=== PATIENT | male | born 1970 | race Caucasian/White ===

== ENCOUNTER → 2016-11-22 | Outpatient (CLI) | payer BC ==
[~2016-11-22] MED LIST: CLEOCIN300 MG PO; CLINDAMYCIN HC300 MG PO; FLEXERIL10 MG PO; FLONASE16 G1 BOTH NARES; LASIX40 MG PO; LORTAB 5-325 M1 EACH PO; NAPROSYN500 MG PO; OXYCODONE-APAP1 EACH PO; PERCOCET 10/1 TABLET PO; PERCOCET 5/31 TABLET PO; TESTONE CI200 MG/1 M IM; VALIUM5 MG PO; ZESTRIL30 MG PO; ZITHROMAX Z-PA250 MG PO
== END | disposition home or self-care (01) ==
LOC: CDC 14:20
DX: I45.10 Unspecified right bundle-branch block (principal); I48.91 Unspecified atrial fibrillation; I10 Essential (primary) hypertension; Z79.899 Other long term (current) drug therapy
CPT/HCPCS: 93000

== ENCOUNTER → 2016-11-26 | Outpatient (CLI) | payer BC ==
[~2016-11-26] VITALS: Ht 188 cm; Wt 181.5 kg
== END | disposition home or self-care (01) ==
LOC: OPR 11-23 10:00
DX: M54.16 Radiculopathy, lumbar region (principal); Z53.09 Procedure and treatment not carried out because of other contraindication; R94.31 Abnormal electrocardiogram [ECG] [EKG]

== ENCOUNTER 2016-12-06 15:47 | Emergency (ER) | payer BC | END 2016-12-06 16:24 | disposition left against medical advice (07) | LOC: EME 15:47 | DX: R06.02 Shortness of breath (principal); I48.91 Unspecified atrial fibrillation; Z53.21 Procedure and treatment not carried out due to patient leaving prior to being seen by health care provider ==

== ENCOUNTER → 2017-02-04 | Outpatient (CLI) | payer BC ==
[~2017-02-04] VITALS: Ht 157.5 cm; Wt 181.8 kg
[~2017-02-04] MED LIST changes: +ASPIR 8181 M1 PO; +METFORMIN HCL1000 MG PO; +METOPROLOL TAR100 MG PO; +ZESTRIL20 MG PO
[2017-02-04 09:50] VITALS: BP 109/72
[2017-02-04 10:19] LABS: CHLORIDE 102 mEq/L (99-109); POTASSIUM 5.6 mEq/L (3.7-5.4); SODIUM 141 mEq/L (136-147)
[2017-02-04 10:21] LABS: GLUCOSE 136 mg/dL (70-99)
[2017-02-04 10:22] LABS: ANION GAP 12 MEQ/L (2-14)
[2017-02-04 10:25] LABS: GFR ESTIMATE (CALCULATED) > 59 mL/min/; UREA NITROGEN (BUN) 19 mg/dL (9-23)
[2017-02-04 13:14] LABS: POINT-OF-CARE METER ID UU13113675
== END | disposition home or self-care (01) ==
LOC: OPR 09:16
PROVIDERS: Family Medicine
PROC: BR39YZZ Magnetic Resonance Imaging (MRI) of Lumbar Spine using Other Contrast (ICD-10-PCS; principal; 2017-02-04)
DX: M51.16 Intervertebral disc disorders with radiculopathy, lumbar region (principal); M48.06 Spinal stenosis, lumbar region; I10 Essential (primary) hypertension; E66.01 Morbid (severe) obesity due to excess calories; Z68.43 Body mass index [BMI] 50.0-59.9, adult
CPT/HCPCS: 72148; 73721; 80048; 82948; J0330; J2250; J2370; J2405; J2710; J3010

== ENCOUNTER 2017-03-03 14:57 | Emergency (ER) | payer BC ==
[~2017-03-03] VITALS: Ht 188 cm; Wt 184.0 kg
[2017-03-03] MEDS ORDERED: NARCAN4 MG NS (15:52)
[2017-03-03 16:26] VITALS: BP 118/92
== END 2017-03-03 16:28 | disposition left against medical advice (07) ==
LOC: EME 14:57
DX: R55 Syncope and collapse (principal); R23.0 Cyanosis; R06.89 Other abnormalities of breathing; G89.29 Other chronic pain; I10 Essential (primary) hypertension; Z79.84 Long term (current) use of oral hypoglycemic drugs; Z79.82 Long term (current) use of aspirin; Z87.891 Personal history of nicotine dependence
CPT/HCPCS: 93005; 99281; 99284; J2310

== ENCOUNTER 2018-02-28 08:44 | Inpatient (IN) | payer OTHER ==
[~2018-02-28] VITALS: Ht 188 cm; Wt 176.0 kg
[~2018-02-28 08:44] MED LIST changes: +NARCAN4 MG NS
[2018-02-28 09:13] LABS: BASOPHIL (%) 0.7 % (0-1); BASOPHIL COUNT 0.1 K/uL (0-0.1); EOSINOPHIL (%) 1.3 % (0-5); EOSINOPHIL COUNT 0.1 K/uL (0-0.3); HEMATOCRIT 42.9 % (38.0-50.0); HEMOGLOBIN 14.2 G/DL (12.5-16.6); IMMATURE GRANULOCYTE (%) 0.7 % (0.0-0.7); LYMPHOCYTE (%) 10.5 % (15-42); MCH 30.1 PG (29.0-34.0); MCHC 33.1 G/DL (30.0-36.0); MCV 91.1 FL (86-99); MONOCYTE (%) 6.2 % (3-12); MONOCYTE COUNT 0.6 K/uL (0-0.8); NEUTROPHIL (%) 80.6 % (45-76); NEUTROPHIL COUNT 7.9 K/uL (1.8-6.4); PLATELET COUNT 191 K/uL (156-360); RBC DIS.WIDTH-CV 14.5 % (11.8-14.6); RBC DIS.WIDTH-SD 48.6 % (39-53); RED BLOOD COUNT 4.71 M/uL (4.00-5.50); WHITE BLOOD COUNT 9.8 K/uL (4.1-10.2)
[2018-02-28 09:19] LABS: INTER. NORMALIZED RATIO 1.2
[2018-02-28 09:21] LABS: PTT 28.2 SEC (25-37)
[2018-02-28 09:24] LABS: CHLORIDE 103 mEq/L (99-109); POTASSIUM 4.1 mEq/L (3.7-5.4); SODIUM 140 mEq/L (136-147)
[2018-02-28 09:25] LABS: GLUCOSE 196 mg/dL (70-99)
[2018-02-28 09:29] LABS: CREATININE 0.9 mg/dL (0.6-1.3); GFR ESTIMATE (CALCULATED) > 59 mL/min/ (58.99-99999)
[2018-02-28 09:30] LABS: UREA NITROGEN (BUN) 11 mg/dL (9-23)
[2018-02-28 09:33] LABS: TROP-I INTERPRETATION NEGATIVE; TROPONIN-I 0.02 ng/mL (0.0-0.30)
[2018-02-28] MEDS ORDERED: XARELTO15 MG PO (10:31)
[2018-02-28 11:58] LABS: HDL CHOLESTEROL 27 MG/DL (Desirable>=40); LDL CHOLESTEROL 50 mg/dL (Desirable<100); NON-HDL CHOLESTEROL 61 mg/dL (Desirable<160); TOTAL CHOLESTEROL 88 mg/dL (Desirable<200); TRIGLYCERIDES 56 MG/DL (Normal: <150)
[2018-02-28 12:10] LABS: THYROTROPIN (TSH) 3.9 MIU/L (0.4-5.5)
[2018-02-28 12:21] VITALS: BP 134/98
[2018-02-28 12:23] VITALS: BP 134/98
[2018-02-28 14:15] VITALS: BP 135/84
[2018-02-28 14:59] VITALS: BP 128/78
[2018-02-28 15:49] LABS: TROP-I INTERPRETATION NEGATIVE; TROPONIN-I 0.03 ng/mL (0.0-0.30)
[2018-02-28 19:45] VITALS: BP 119/63
[2018-02-28 21:46] LABS: TROP-I INTERPRETATION NEGATIVE; TROPONIN-I 0.03 ng/mL (0.0-0.30)
[2018-03-01 00:34] VITALS: BP 104/77
[2018-03-01 04:14] VITALS: BP 117/79
[2018-03-01 05:18] LABS: HEMATOCRIT 44.4 % (38.0-50.0); HEMOGLOBIN 13.9 G/DL (12.5-16.6); MCH 29.2 PG (29.0-34.0); MCHC 31.3 G/DL (30.0-36.0); MCV 93.3 FL (86-99); PLATELET COUNT 179 K/uL (156-360); RBC DIS.WIDTH-CV 14.8 % (11.8-14.6); RBC DIS.WIDTH-SD 50.9 % (39-53); RED BLOOD COUNT 4.76 M/uL (4.00-5.50); WHITE BLOOD COUNT 9.1 K/uL (4.1-10.2)
[2018-03-01 05:55] LABS: ALBUMIN 3.9 G/DL (3.2-4.8); ALKALINE PHOSPHATASE 63 IU/L (3-129); ALT (GPT) 21 IU/L (3-49); AST (GOT) 40 IU/L (2-34); CHLORIDE 97 MEQ/L (99-109); GLUCOSE 169 mg/dL (70-99); POTASSIUM 4.3 MEQ/L (3.7-5.4); SODIUM 137 MEQ/L (136-147); TOTAL BILIRUBIN 0.4 MG/DL (0.0-1.0); TOTAL PROTEIN 6.3 G/DL (6.4-8.3); UREA NITROGEN (BUN) 17 mg/dL (9-23)
[2018-03-01 06:49] LABS: CREATININE 0.9 MG/DL (0.6-1.3); GFR ESTIMATE (CALCULATED) > 59 mL/min/ (58.99-99999)
[2018-03-01 08:29] VITALS: BP 156/101
[2018-03-01 11:12] VITALS: BP 133/83
[2018-03-01] MEDS ORDERED: LISINOPRIL20 MG PO (13:49)
[2018-03-01] MEDS ORDERED: LOPRESSOR50 MG PO (13:51)
[2018-03-01] MEDS ORDERED: CALAN80 MG PO (13:52)
== END 2018-03-01 14:31 | disposition home or self-care (01) | DRG 309 ==
LOC: EME → EDBD 08:44 → EDOF 10:51 → 4EAST 10:51 → ENRESERV 11:10 → 4EAST 12:09
PROVIDERS: Emergency Medicine; Internal Medicine
DX: I48.1 Persistent atrial fibrillation (principal); I48.2 Chronic atrial fibrillation; G89.4 Chronic pain syndrome; M54.5 Low back pain; E66.01 Morbid (severe) obesity due to excess calories; Z68.42 Body mass index [BMI] 45.0-49.9, adult; G47.30 Sleep apnea, unspecified; E11.9 Type 2 diabetes mellitus without complications; I10 Essential (primary) hypertension; E78.5 Hyperlipidemia, unspecified; I45.10 Unspecified right bundle-branch block; I87.2 Venous insufficiency (chronic) (peripheral); F17.210 Nicotine dependence, cigarettes, uncomplicated
CPT/HCPCS: 70450; 71045; 80048; 80053; 80061; 82948; 84443; 84484; 85025; 85027; 85610; 85730; 93005; 93306; 99281; 99285; J1160; J7050